=== PATIENT | female | born 1975 | race Two or more races ===

== ENCOUNTER 2017-02-14 11:16 | Outpatient (CLI) | payer OTHER | END 2017-02-14 11:23 | disposition home or self-care (01) | LOC: SONOGRAMA 11:16 | DX: M05.79 Rheumatoid arthritis with rheumatoid factor of multiple sites without organ or systems involvement (principal); M76.821 Posterior tibial tendinitis, right leg ==

== ENCOUNTER 2017-02-18 08:09 | Outpatient (CLI) | payer OTHER | END 2017-02-18 08:20 | disposition home or self-care (01) | LOC: MAMO-SONO 08:09 | DX: Z12.31 Encounter for screening mammogram for malignant neoplasm of breast (principal) ==